=== PATIENT | female | born 2000 | race Caucasian/White ===

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

== ENCOUNTER 2021-03-30 02:01 | Emergency (ER) | payer OTHER ==
[~2021-03-30] VITALS: Ht 182.9 cm; Wt 120.5 kg
[2021-03-30 02:02] VITALS: BP 164/92
[2021-03-30] MEDS ORDERED: LEXA1TAB PO (02:07)
--- NOTE | 2021-03-30 04:57 | REPVR ---
PROCEDURE INFORMATION: Exam: XR Right Foot Exam date and time: 03/30/2021 4:22 AM Age: 21 years old Clinical indication: Pain; Foot; Right; Additional info: Ankle foot pain after a fall TECHNIQUE: Imaging protocol: XR Right foot. Views: 3 or more views. COMPARISON: No relevant prior studies available. FINDINGS: Bones/joints: There is no evidence of acute fracture or dislocation. Joint spaces are preserved. Soft tissues: The soft tissues appear unremarkable. IMPRESSION: No fracture identified. Electronically signed by: Janis Silver On 03/30/2021 04:57:09 AM
--- NOTE | 2021-03-30 04:58 | REPVR ---
PROCEDURE INFORMATION: Exam: XR Right Ankle Exam date and time: 03/30/2021 4:22 AM Age: 21 years old Clinical indication: Pain; Ankle; Right; Additional info: Ankle foot pain after a fall TECHNIQUE: Imaging protocol: XR Right ankle. Views: 3 or more views. COMPARISON: No relevant prior studies available. FINDINGS: Bones/joints: There is no evidence of acute fracture or dislocation. The ankle mortise is symmetric. Soft tissues: The soft tissues appear unremarkable. IMPRESSION: No fracture identified. Electronically signed by: Janis Silver On 03/30/2021 04:57:58 AM
== END 2021-03-30 05:50 | disposition home or self-care (01) ==
LOC: M ED 02:01
DX: S93.401A Sprain of unspecified ligament of right ankle, initial encounter (principal); W01.0XXA Fall on same level from slipping, tripping and stumbling without subsequent striking against object, initial encounter; Y92.481 Parking lot as the place of occurrence of the external cause; Y93.89 Activity, other specified; Y99.0 Civilian activity done for income or pay; Z79.3 Long term (current) use of hormonal contraceptives; Z79.899 Other long term (current) drug therapy

== ENCOUNTER 2021-04-03 13:36 | Emergency (ER) | payer OTHER ==
[~2021-04-03] VITALS: Ht 182.9 cm; Wt 118.2 kg
[~2021-04-03 13:36] MED LIST changes: +LEXA1TAB PO
[2021-04-03 19:37] VITALS: BP 143/70
--- NOTE | 2021-04-04 08:44 | REP ---
INDICATION: s/p fall one week ago, pain over the dorsum and lateral mall. COMPARISON: None. TECHNIQUE: Axial noncontrast images through the right foot with coronal and sagittal reformations. FINDINGS: The osseous structures and joint spaces appear intact and normal. There is no evidence for acute fracture or dislocation. No significant arthritic or obvious congenital abnormalities are identified. The supporting soft tissue structures are grossly normal by CT evaluation. The subcutaneous tissues demonstrate questionable edematous changes to the mid and hindfoot which should be correlated with physical examination and history of injury. No subcutaneous emphysema or foreign body identified. IMPRESSION: Essentially normal examination as above. <Electronically signed by Buck Montanez > 04/04/21 [id number]
== END 2021-04-03 19:41 | disposition home or self-care (01) ==
LOC: M ED 13:36
DX: S93.401A Sprain of unspecified ligament of right ankle, initial encounter (principal); W01.0XXA Fall on same level from slipping, tripping and stumbling without subsequent striking against object, initial encounter; Y92.9 Unspecified place or not applicable; Y93.9 Activity, unspecified; Y99.0 Civilian activity done for income or pay; Z79.899 Other long term (current) drug therapy

== ENCOUNTER → 2021-05-23 | Outpatient (REF) ==
[~2021-05-23] MED LIST changes: -MONT10TA10 PO; +MONT10TA97 PO
== END ==
LOC: M EMP 10:05
PROVIDERS: ATTEND Family Medicine
DX: Z20.822 Contact with and (suspected) exposure to COVID-19 (principal)

== ENCOUNTER → 2021-10-06 | Outpatient (REF) | LOC: M EMP 10:00 | PROVIDERS: ATTEND Family Medicine | DX: Z11.52 Encounter for screening for COVID-19 (principal) ==

== ENCOUNTER → 2021-12-22 | Outpatient (REF) ==
[2021-12-22 12:59] LABS: RSV AMPLIFICATION NEGATIVE (NEGATIVE)
== END ==
LOC: M EMP 09:06
PROVIDERS: ATTEND Family Medicine
DX: Z20.822 Contact with and (suspected) exposure to COVID-19 (principal); Z11.52 Encounter for screening for COVID-19

== ENCOUNTER → 2022-03-06 | Outpatient (CLI) | payer OTHER ==
[2022-03-06 15:53] LABS: HEMATOCRIT 34.5 % (36.0-47.0); HEMOGLOBIN 11.1 g/dl (12.0-15.5); MEAN CORPUSCULAR HEMOGLOBIN 24.6 pg (27.0-33.0); MEAN CORPUSCULAR HGB CONC 32.2 g/dl (32.0-36.5); MEAN CORPUSCULAR VOLUME 76.5 fl (80.0-96.0); PLATELET COUNT, AUTOMATED 244 10^3/uL (150-450); RED BLOOD COUNT 4.51 10^6/uL (4.00-5.40); WHITE BLOOD COUNT 9.6 10^3/uL (4.0-10.0)
[2022-03-06 17:04] LABS: HIV 1&2 SCREEN CENTAUR NEGATIVE (NEGATIVE)
[2022-03-06 17:05] LABS: GC DNA AMPLIFICATION NEGATIVE (NEGATIVE)
[2022-03-06 17:10] LABS: HEPATITIS C VIRUS ABY INDEX 0.3 INDEX (<0.8)
== END ==
LOC: M PLALAB 13:46
PROVIDERS: ATTEND Advanced Practice Midwife
DX: Z36.9 Encounter for antenatal screening, unspecified (principal)

== ENCOUNTER 2022-03-24 11:34 | Emergency (ER) | payer OTHER ==
[~2022-03-24] VITALS: Ht 182.9 cm; Wt 96.2 kg
[2022-03-24 11:35] VITALS: BP 143/68
[2022-03-24] MEDS ORDERED: PRENTAB53 PO (11:44)
[2022-03-24] MEDS ORDERED: ACETAMINOPHEN 500 MG TAB PO ONE (13:15)
[2022-03-24] MEDS ORDERED: ONDANSETRON 4MG 2ML VIAL IV ONE (13:15)
[2022-03-24] MEDS ORDERED: NS 1,000 ML IV ONE (13:15)
[2022-03-24 13:40] LABS: BASO % 0.4 % (0.0-1.0); EOS % 0.4 % (0.0-3.0); HEMATOCRIT 35.2 % (36.0-47.0); HEMOGLOBIN 11.6 g/dl (12.0-15.5); LYMPH # 0.8 10^3/uL (1.5-5.0); LYMPH % 10.2 % (24.0-44.0); MEAN CORPUSCULAR HEMOGLOBIN 25.1 pg (27.0-33.0); MEAN CORPUSCULAR VOLUME 76.2 fl (80.0-96.0); MONO # 0.5 10^3/uL (0.0-0.8); MONO % 6.1 % (2.0-8.0); NEUTROPHILS # 6.6 10^3/uL (1.5-8.5); NEUTROPHILS % 82.4 % (36.0-66.0); PLATELET COUNT, AUTOMATED 215 10^3/uL (150-450); RED BLOOD COUNT 4.62 10^6/uL (4.00-5.40)
[2022-03-24 14:05] LABS: ALBUMIN 3.1 G/DL (3.2-5.2); ALKALINE PHOSPHATASE 86 U/L (46-116); ALT/SGPT 13 U/L (7.0-40); AST/SGOT 15 U/L (<34); BILIRUBIN,DIRECT 0.2 MG/DL (<0.4); BILIRUBIN,TOTAL 0.7 MG/DL (0.3-1.2); BLOOD UREA NITROGEN 8 MG/DL (9-23); CALCIUM LEVEL 8.5 MG/DL (8.5-10.1); CARBON DIOXIDE LEVEL 21 MMOL/L (20-31); CHLORIDE LEVEL 104 MMOL/L (98-107); GLOMERULAR FILTRATION RATE > 60.0 (>60); GLUCOSE, FASTING 85 MG/DL (60-100); POTASSIUM SERUM 3.6 MMOL/L (3.5-5.1); SODIUM LEVEL 137 MMOL/L (136-145); TOTAL PROTEIN 6.4 G/DL (5.7-8.2)
[2022-03-24 14:12] LABS: RSV AMPLIFICATION NEGATIVE (NEGATIVE)
[2022-03-24] MEDS ORDERED: ONDANSETRON 4MG ORAL DISINTEGRATING TAB PO ONE (14:40)
[2022-03-24] MEDS ORDERED: ONDA4TAB6 PO (14:57)
== END 2022-03-24 15:28 | disposition home or self-care (01) ==
LOC: M ED 11:34
DX: O21.9 Vomiting of pregnancy, unspecified (principal); K58.9 Irritable bowel syndrome, unspecified; J45.909 Unspecified asthma, uncomplicated; Z79.810 Long term (current) use of selective estrogen receptor modulators (SERMs); Z79.899 Other long term (current) drug therapy; Z3A.18 18 weeks gestation of pregnancy
CPT/HCPCS: 80048; 80076; 85025; 87631; 96361; 96374; 99284; J2405

== ENCOUNTER → 2022-03-28 | Outpatient (CLI) | payer OTHER ==
[~2022-03-28] MED LIST changes: +ONDA4TAB6 PO; +PRENTAB53 PO
== END ==
LOC: M WHC 08:21
PROVIDERS: ATTEND Advanced Practice Midwife
DX: Z34.01 Encounter for supervision of normal first pregnancy, first trimester (principal); Z3A.19 19 weeks gestation of pregnancy

== ENCOUNTER → 2022-04-26 | Outpatient (CLI) | payer OTHER | LOC: M WHC 08:33 | PROVIDERS: ATTEND Advanced Practice Midwife | DX: Z34.02 Encounter for supervision of normal first pregnancy, second trimester (principal); Z3A.24 24 weeks gestation of pregnancy ==

== ENCOUNTER → 2022-05-18 | Outpatient (CLI) | payer OTHER ==
[2022-05-18 14:15] LABS: HEMATOCRIT 35.1 % (36.0-47.0); HEMOGLOBIN 11.4 g/dl (12.0-15.5); MEAN CORPUSCULAR HEMOGLOBIN 26.1 pg (27.0-33.0); MEAN CORPUSCULAR HGB CONC 32.5 g/dl (32.0-36.5); MEAN CORPUSCULAR VOLUME 80.5 fl (80.0-96.0); PLATELET COUNT, AUTOMATED 242 10^3/uL (150-450); RED BLOOD COUNT 4.36 10^6/uL (4.00-5.40); WHITE BLOOD COUNT 9.7 10^3/uL (4.0-10.0)
== END ==
LOC: M PLALAB 10:04
PROVIDERS: ATTEND Advanced Practice Midwife
DX: Z34.02 Encounter for supervision of normal first pregnancy, second trimester (principal)

== ENCOUNTER → 2022-07-17 | Outpatient (CLI) | payer OTHER ==
[2022-07-17 11:16] LABS: URIC ACID 5.3 MG/DL (3.1-7.8)
[2022-07-17 11:18] LABS: LDH LACTATE DEHYDROGENASE 171 U/L (120-246)
[2022-07-17 11:19] LABS: ALT/SGPT 14 U/L (7.0-40); AST/SGOT 16 U/L (<34); BILIRUBIN,TOTAL 0.2 MG/DL (0.3-1.2); CREATININE FOR GFR 0.55 MG/DL (0.55-1.30); GLOMERULAR FILTRATION RATE > 60.0 (>60)
[2022-07-17 11:24] LABS: HEMATOCRIT 32.7 % (36.0-47.0); HEMOGLOBIN 10.5 g/dl (12.0-15.5); MEAN CORPUSCULAR HEMOGLOBIN 25.1 pg (27.0-33.0); MEAN CORPUSCULAR HGB CONC 32.1 g/dl (32.0-36.5); PLATELET COUNT, AUTOMATED 272 10^3/uL (150-450); RED BLOOD COUNT 4.19 10^6/uL (4.00-5.40); WHITE BLOOD COUNT 13.3 10^3/uL (4.0-10.0)
[2022-07-17 11:33] LABS: TOTAL PROTEIN,RANDOM URINE 11.8 MG/DL (0.0-14.0)
[2022-07-17 11:39] LABS: CREATININE,RANDOM URINE 46.5 MG/DL
== END ==
LOC: M PLALAB 08:33
PROVIDERS: ATTEND Advanced Practice Midwife
DX: O13.9 Gestational [pregnancy-induced] hypertension without significant proteinuria, unspecified trimester (principal)

== ENCOUNTER 2022-07-26 08:06 | Inpatient (IN) | payer OTHER ==
[~2022-07-26] VITALS: Ht 182.9 cm; Wt 109.0 kg
[2022-07-26] VITALS (14 sets, daily range): BP systolic 119–143; BP diastolic 68–96
[2022-07-26] MEDS ORDERED: CETI5SOL3 PO (08:59)
[2022-07-26] MEDS ORDERED: LIDOCAINE 1% MDV 20ML VIAL INFIL PRN (09:00)
[2022-07-26] MEDS ORDERED: OXYTOCIN DRIP 30 UNITS in IV 1 EA IV PRN (09:00)
[2022-07-26 09:17] LABS: HEMATOCRIT 32.9 % (36.0-47.0); HEMOGLOBIN 10.5 g/dl (12.0-15.5); MEAN CORPUSCULAR HEMOGLOBIN 24.4 pg (27.0-33.0); MEAN CORPUSCULAR HGB CONC 31.9 g/dl (32.0-36.5); MEAN CORPUSCULAR VOLUME 76.5 fl (80.0-96.0); PLATELET COUNT, AUTOMATED 225 10^3/uL (150-450); WHITE BLOOD COUNT 11.5 10^3/uL (4.0-10.0)
[2022-07-26] MEDS: miSOPROStol 50MCG 1/2 TABLET SL SCH ×4 (09:31→21:30)
[2022-07-26] MEDS ORDERED: OMEPRAZOLE 20MG CAP PO ONE (21:10)
[2022-07-26] MEDS ORDERED: diphenhydrAMINE 25MG CAP PO ONE (21:10)
[2022-07-27] VITALS (45 sets, daily range): BP systolic 96–150; BP diastolic 59–95
[2022-07-27] MEDS: miSOPROStol 50MCG 1/2 TABLET SL SCH (02:05)
[2022-07-27] MEDS ORDERED: OMEPRAZOLE 20MG CAP PO SCH (09:00)
[2022-07-27] MEDS ORDERED: OXYTOCIN DRIP 30 UNITS in IV 1 EA IV SCH ×2 (09:25→23:40)
[2022-07-27] MEDS: LR 1,000 ML IV SCH ×2 (09:55→17:59)
[2022-07-27] MEDS ORDERED: NALOXONE INJ 0.4MG/1ML VIAL IV PRN (12:45)
[2022-07-27] MEDS ORDERED: LR 500 ML IV PRN (12:45)
[2022-07-27] MEDS ORDERED: diphenhydrAMINE 50MG/ML VIAL IV PRN (12:45)
[2022-07-27] MEDS ORDERED: ePHEDrine SULFATE 25 MG/5 ML(5MG/ML) SYRINGE IVP PRN (12:45)
[2022-07-27] MEDS ORDERED: ONDANSETRON 4MG 2ML VIAL IV PRN ×2 (12:45→23:40)
[2022-07-27] MEDS ORDERED: FENTANYL/ROPIVACAINE/NACL BAG 100 ML EPIDURAL SCH ×2 (12:45→21:00)
[2022-07-27] MEDS ORDERED: EPIDURAL/PCA KEYS XX PRN (12:45)
[2022-07-27] MEDS ORDERED: FENTANYL 2MCG/ML ROPIVACAINE 0.2% IN 0.9% NACL 100ML IVBAG As Ordered ONE ×2 (12:48→12:50)
[2022-07-27] MEDS ORDERED: REFLB XX ONE ×2 (12:49→20:59)
[2022-07-27] MEDS ORDERED: CALCIUM CARBONATE 500 MG CHEW U/D PO PRN (14:50)
[2022-07-27] MEDS ORDERED: RHOGAM 300MCG (1500IU) INJ IM SCH (23:40)
[2022-07-27] MEDS ORDERED: ANUSOL HC CREAM 30GM TOP PRN (23:40)
[2022-07-27] MEDS ORDERED: MOM 30ML SUSPENSION UDC PO PRN (23:40)
[2022-07-28] VITALS (7 sets, daily range): BP systolic 121–144; BP diastolic 74–82
[2022-07-28] MEDS: DIBUCAINE 1% OINTMENT 30GM TOP PRN ×2 (02:04→18:27)
[2022-07-28] MEDS: ACETAMINOPHEN 500 MG TAB PO PRN ×2 (02:44→10:05)
[2022-07-28] MEDS: IBUPROFEN 600MG TAB PO PRN ×2 (06:23→18:28)
[2022-07-28] MEDS: PRENATAL VITAMINS CHEWABLE TABLET PO SCH (10:05)
[2022-07-28] MEDS: DOCUSATE SODIUM 100MG CAPSULE PO SCH ×2 (10:05→20:20)
[2022-07-28] MEDS ORDERED: CETIRIZINE (ZyrTEC) 10 MG TAB PO SCH (21:00)
[2022-07-28] MEDS ORDERED: OMEPRAZOLE 20MG CAP PO SCH (21:00)
[2022-07-29] MEDS: ACETAMINOPHEN 500 MG TAB PO PRN ×2 (05:48→14:15)
[2022-07-29 06:00] VITALS: BP 131/85
[2022-07-29] MEDS: DOCUSATE SODIUM 100MG CAPSULE PO SCH (08:14)
[2022-07-29] MEDS: IBUPROFEN 600MG TAB PO PRN (08:14)
[2022-07-29] MEDS: PRENATAL VITAMINS CHEWABLE TABLET PO SCH (08:14)
[2022-07-29] MEDS ORDERED: MEASLES,MUMPS,RUBELLA VACCINE INJ (MMR-II) SC.IMMUN ONE (09:00)
[2022-07-29] MEDS ORDERED: ACET-683 PO (11:04)
[2022-07-29] MEDS ORDERED: COLA100C5 PO (11:04)
[2022-07-29] MEDS ORDERED: IBUP-1022 PO (11:04)
[2022-07-29] MEDS ORDERED: medroxyPROGESTERone ACET IM SUSP 150 MG/ML VIAL IM ONE (11:30)
== END 2022-07-29 15:30 | disposition home or self-care (01) | DRG 560 ==
LOC: M LDI 08:06 → M OBS 07-28 02:05
PROVIDERS: ADMIT Specialist; ATTEND Specialist
PROC: 3E033VJ Introduction of Other Hormone into Peripheral Vein, Percutaneous Approach (ICD-10-PCS; 2022-07-26)
PROC: 3E0P7VZ Introduction of Hormone into Female Reproductive, Via Natural or Artificial Opening (ICD-10-PCS; 2022-07-26)
PROC: 10E0XZZ Delivery of Products of Conception, External Approach (ICD-10-PCS; principal; 2022-07-27)
PROC: 0KQM0ZZ Repair Perineum Muscle, Open Approach (ICD-10-PCS; 2022-07-27)
DX: O13.4 Gestational [pregnancy-induced] hypertension without significant proteinuria, complicating childbirth (principal); O70.1 Second degree perineal laceration during delivery; Z37.0 Single live birth; Z3A.37 37 weeks gestation of pregnancy

== ENCOUNTER 2022-07-31 00:36 | Emergency (ER) | payer OTHER ==
[~2022-07-31] VITALS: Ht 182.9 cm; Wt 109.1 kg
[~2022-07-31 00:36] MED LIST changes: +ACET-683 PO; +CETI5SOL3 PO; +COLA100C5 PO; +IBUP-1022 PO
[2022-07-31 01:37] LABS: BASO % 0.4 % (0.0-1.0); EOS # 0.3 10^3/uL (0.0-0.5); EOS % 2.7 % (0.0-3.0); HEMATOCRIT 27.8 % (36.0-47.0); LYMPH # 2.6 10^3/uL (1.5-5.0); LYMPH % 27.1 % (24.0-44.0); MEAN CORPUSCULAR HEMOGLOBIN 25.3 pg (27.0-33.0); MEAN CORPUSCULAR HGB CONC 32.4 g/dl (32.0-36.5); MEAN CORPUSCULAR VOLUME 78.1 fl (80.0-96.0); MONO # 0.6 10^3/uL (0.0-0.8); MONO % 5.7 % (2.0-8.0); NEUTROPHILS % 62.9 % (36.0-66.0); PLATELET COUNT, AUTOMATED 225 10^3/uL (150-450); RED BLOOD COUNT 3.56 10^6/uL (4.00-5.40); WHITE BLOOD COUNT 9.6 10^3/uL (4.0-10.0)
[2022-07-31 01:48] LABS: INR 0.91; PROTHROMBIN TIME 12.5 SECONDS (12.5-14.5)
[2022-07-31 01:49] LABS: PARTIAL THROMBOPLASTIN TIME 22.5 SECONDS (24.8-34.2)
[2022-07-31 01:54] LABS: APPEARANCE, URINE CLEAR (CLEAR); BACTERIA, URINE AUTO NEGATIVE (NEGATIVE); BILIRUBIN, URINE AUTO NEGATIVE (NEGATIVE); BLOOD, URINE BLOOD 2+ (NEGATIVE); COLOR, URINE YELLOW (YELLOW); GLUCOSE, URINE (UA) AUTO NEGATIVE (NEGATIVE); KETONE, URINE AUTO NEGATIVE (NEGATIVE); LEUKOCYTE ESTERASE, URINE AUTO 1+ (NEGATIVE); MUCUS, URINE SMALL (NEGATIVE); NITRITE, URINE AUTO NEGATIVE (NEGATIVE); PROTEIN, URINE AUTO NEGATIVE (NEGATIVE); RBC, URINE AUTO 21 /HPF (0-3); SPECIFIC GRAVITY URINE AUTO 1.017 (1.002-1.035); SQUAMOUS EPITHELIAL CELL UR AU 1 /HPF (0-6); UROBILINOGEN, URINE AUTO 0.2 mg/dL (0.0-2.0); WBC, URINE AUTO 8 /HPF (0-3)
[2022-07-31 02:08] LABS: ALBUMIN 2.7 G/DL (3.2-5.2); ALKALINE PHOSPHATASE 106 U/L (46-116); ALT/SGPT 22 U/L (7.0-40); AST/SGOT 20 U/L (<34); BILIRUBIN,TOTAL 0.2 MG/DL (0.3-1.2); BLOOD UREA NITROGEN 12 MG/DL (9-23); CALCIUM LEVEL 8.9 MG/DL (8.5-10.1); CARBON DIOXIDE LEVEL 28 MMOL/L (20-31); CHLORIDE LEVEL 107 MMOL/L (98-107); CREATININE FOR GFR 0.64 MG/DL (0.55-1.30); GLOMERULAR FILTRATION RATE > 60.0 (>60); GLUCOSE, FASTING 85 MG/DL (60-100); POTASSIUM SERUM 4.4 MMOL/L (3.5-5.1); SODIUM LEVEL 141 MMOL/L (136-145); TOTAL PROTEIN 6.1 G/DL (5.7-8.2)
[2022-07-31 02:20] LABS: CREATININE,RANDOM URINE 81.5 MG/DL
[2022-07-31 07:15] VITALS: BP 138/96
== END 2022-07-31 07:30 | disposition home or self-care (01) ==
LOC: M ED 00:36
DX: O12.05 Gestational edema, complicating the puerperium (principal); O90.81 Anemia of the puerperium; R03.0 Elevated blood-pressure reading, without diagnosis of hypertension; J45.909 Unspecified asthma, uncomplicated; K58.9 Irritable bowel syndrome, unspecified; K21.9 Gastro-esophageal reflux disease without esophagitis; Z88.8 Allergy status to other drugs, medicaments and biological substances; Z79.1 Long term (current) use of non-steroidal anti-inflammatories (NSAID); Z79.810 Long term (current) use of selective estrogen receptor modulators (SERMs); Z79.899 Other long term (current) drug therapy

== ENCOUNTER → 2023-01-19 | Outpatient (REF) | payer OTHER | LOC: M LAB REF 18:17 | PROVIDERS: ATTEND Physician Assistant | DX: B34.9 Viral infection, unspecified (principal) ==

== ENCOUNTER → 2023-06-25 | Outpatient (REF) | payer OTHER | LOC: M PLALAB 16:18 | PROVIDERS: ATTEND Advanced Practice Midwife | DX: N93.0 Postcoital and contact bleeding (principal) ==

== ENCOUNTER → 2023-07-01 | Outpatient (REF) | payer OTHER ==
[2023-07-01 14:32] LABS: THYROID STIMULATING HORMONE 1.025 uIU/ML (0.55-4.78); TOTAL 25(OH) VITAMIN D 17.8 NG/ML (20.0-100.0)
[2023-07-01 14:35] LABS: FREE T4 1.05 NG/DL (0.89-1.76)
== END ==
LOC: M SFHCADAM 08:34
PROVIDERS: ATTEND Physician Assistant Medical
DX: F41.1 Generalized anxiety disorder (principal); F32.2 Major depressive disorder, single episode, severe without psychotic features

== ENCOUNTER 2023-10-15 07:37 | Emergency (ER) | payer OTHER, SELFPAY ==
[~2023-10-15] VITALS: Ht 182.9 cm; Wt 112.5 kg
[~2023-10-15 07:37] MED LIST changes: +ONDA-282 PO; -ONDA4TAB6 PO
[2023-10-15] MEDS: ACETAMINOPHEN 325 MG TAB PO ONE (09:35)
[2023-10-15] MEDS: KETOROLAC 30 MG/ML 1ML VIAL IV ONE (09:35)
[2023-10-15] MEDS ORDERED: ONDA-282 PO (09:39)
[2023-10-15] MEDS: ONDANSETRON 4MG ORAL DISINTEGRATING TAB PO ONE (09:58)
[2023-10-15] MEDS: KETOROLAC 30 MG/ML 1ML VIAL IM ONE (09:58)
[2023-10-15 10:17] VITALS: BP 150/79; TEMP 98.1; O2SAT 97
== END 2023-10-15 10:23 | disposition home or self-care (01) ==
LOC: M ED 07:37
DX: S30.0XXA Contusion of lower back and pelvis, initial encounter (principal); S01.01XA Laceration without foreign body of scalp, initial encounter; S13.4XXA Sprain of ligaments of cervical spine, initial encounter; S43.402A Unspecified sprain of left shoulder joint, initial encounter; W10.8XXA Fall (on) (from) other stairs and steps, initial encounter; J45.909 Unspecified asthma, uncomplicated; K58.9 Irritable bowel syndrome, unspecified; I10 Essential (primary) hypertension; F41.9 Anxiety disorder, unspecified; F32.A Depression, unspecified; Z88.8 Allergy status to other drugs, medicaments and biological substances; Z91.048 Other nonmedicinal substance allergy status; Y92.009 Unspecified place in unspecified non-institutional (private) residence as the place of occurrence of the external cause; Y93.89 Activity, other specified; Y99.9 Unspecified external cause status; Z79.83 Long term (current) use of bisphosphonates; Z79.899 Other long term (current) drug therapy
CPT/HCPCS: 70450; 72125; 72190; 73030; 73660; 96372; 99284; J1885

== ENCOUNTER → 2023-12-04 | Outpatient (REF) | LOC: M EMP 10:32 | PROVIDERS: ATTEND Family Medicine | DX: Z11.52 Encounter for screening for COVID-19 (principal) ==

== ENCOUNTER → 2024-01-27 | Outpatient (REF) | LOC: M EMP 12:57 | PROVIDERS: ATTEND Family Medicine | DX: Z11.52 Encounter for screening for COVID-19 (principal) ==

== ENCOUNTER → 2024-04-11 | Outpatient (REF) | payer OTHER | LOC: M LAB REF 13:14 | PROVIDERS: ATTEND Physician Assistant | DX: J02.9 Acute pharyngitis, unspecified (principal) ==

== ENCOUNTER → 2024-04-27 | Outpatient (CLI) | payer OTHER ==
[2024-04-27 18:26] LABS: THYROID STIMULATING HORMONE 1.332 uIU/ML (0.55-4.78); TOTAL 25(OH) VITAMIN D 75.2 NG/ML (20.0-100.0)
[2024-04-27 18:27] LABS: FREE T4 1.14 NG/DL (0.89-1.76)
== END ==
LOC: M PLALAB 16:12
PROVIDERS: ATTEND Physician Assistant Medical
DX: F32.2 Major depressive disorder, single episode, severe without psychotic features (principal)

== ENCOUNTER → 2024-05-21 | Outpatient (CLI) | payer OTHER | LOC: M WUC 09:55 | PROVIDERS: ATTEND Physician Assistant | DX: S90.32XA Contusion of left foot, initial encounter (principal); W01.10XA Fall on same level from slipping, tripping and stumbling with subsequent striking against unspecified object, initial encounter; Y92.009 Unspecified place in unspecified non-institutional (private) residence as the place of occurrence of the external cause ==

== ENCOUNTER → 2024-06-16 | Outpatient (CLI) | payer OTHER | LOC: M SOG 07:54 | PROVIDERS: ATTEND Physician Assistant | DX: Z53.21 Procedure and treatment not carried out due to patient leaving prior to being seen by health care provider (principal) ==

== ENCOUNTER → 2024-06-30 | Outpatient (REF) | payer OTHER | LOC: M SFHCWAGY 13:09 | PROVIDERS: ATTEND Advanced Practice Midwife | DX: Z12.4 Encounter for screening for malignant neoplasm of cervix (principal) ==

== ENCOUNTER → 2024-10-20 | Outpatient (CLI) | payer OTHER ==
[2024-10-20 16:11] LABS: PLATELET COUNT, AUTOMATED 373 10^3/uL (150-450)
[2024-10-20 16:42] LABS: ALT/SGPT 19 U/L (7.0-40); AST/SGOT 17 U/L (<34); CALCIUM LEVEL 9.5 MG/DL (8.5-10.1); CARBON DIOXIDE LEVEL 28 MMOL/L (20-31); CHLORIDE LEVEL 102 MMOL/L (98-107); CHOLESTEROL LEVEL 120 MG/DL (<200); CHOLESTEROL RISK RATIO 3.26 (<5); CREATININE FOR GFR 0.66 MG/DL (0.55-1.30); GLOMERULAR FILTRATION RATE > 90.0 (>60); LDL CHOLESTEROL 65.9 MG/DL (<100); NON-HDL-C 83.3 MG/DL; POTASSIUM SERUM 4.2 MMOL/L (3.5-5.1); SODIUM LEVEL 141 MMOL/L (136-145); TRIGLYCERIDES LEVEL 87 MG/DL (<150)
[2024-10-20 17:28] LABS: ESTIMATED AVERAGE GLUCOSE 111.0 MG/DL (60-110)
== END ==
LOC: M LAB 15:26
DX: F31.81 Bipolar II disorder (principal)

== ENCOUNTER → 2024-11-03 | Outpatient (CLI) | payer OTHER ==
[2024-11-03 15:16] LABS: PLATELET COUNT, AUTOMATED 322 10^3/uL (150-450)
[2024-11-03 15:40] LABS: IRON (FE) 13.0 UG/DL (50-170); PERCENT SATURATION 4.2 % (13.2-45.0)
[2024-11-03 15:43] LABS: VITAMIN B12 LEVEL 664.0 PG/ML (211-911)
== END ==
LOC: M LAB 14:24
PROVIDERS: ATTEND Physician Assistant Medical
DX: D64.9 Anemia, unspecified (principal); N92.0 Excessive and frequent menstruation with regular cycle

== ENCOUNTER → 2024-11-04 | Outpatient (REF) | payer OTHER | LOC: M SFHCADAM 12:52 | PROVIDERS: ATTEND Physician Assistant Medical | DX: D64.9 Anemia, unspecified (principal); N92.0 Excessive and frequent menstruation with regular cycle ==

== ENCOUNTER 2024-11-25 11:56 | Outpatient (CLI) | payer OTHER ==
[~2024-11-25] VITALS: Ht 182.9 cm; Wt 119.0 kg
[~2024-11-25 11:56] MED LIST changes: +ALBUTEROL SULFATE 2.5 MG/0.5 ML INH CONCENTRATE NEB SOLN INH PRN; +EPINEPHrine INJ 1 MG/ML 1ML AMP IM PRN; -IBUP-1022 PO; +IBUP600T42 PO; +diphenhydrAMINE 50 MG/ML VIAL IV PRN
[2024-11-25 12:00] VITALS: BP 125/73; O2SAT 100
[2024-11-25] MEDS: IRON SUCROSE 300 MG in NS 250 ML IV ONE (13:19)
[2024-11-25 15:38] VITALS: BP 130/76; O2SAT 97
== END 2024-11-25 15:38 ==
LOC: M INFU 11:56
PROVIDERS: ATTEND Physician Assistant Medical
DX: D64.9 Anemia, unspecified (principal); Z88.8 Allergy status to other drugs, medicaments and biological substances
CPT/HCPCS: 96365; 96366; J1100; J1756

== ENCOUNTER → 2024-12-18 | Outpatient (CLI) | payer OTHER ==
[~2024-12-18] MED LIST changes: -ALBUTEROL SULFATE 2.5 MG/0.5 ML INH CONCENTRATE NEB SOLN INH PRN; -EPINEPHrine INJ 1 MG/ML 1ML AMP IM PRN; -diphenhydrAMINE 50 MG/ML VIAL IV PRN
== END ==
LOC: M WHC 08:36
PROVIDERS: ATTEND Physician Assistant Medical
DX: E66.01 Morbid (severe) obesity due to excess calories (principal)

== ENCOUNTER → 2025-02-12 | Outpatient (REF) | payer OTHER ==
[2025-02-12 17:30] LABS: APPEARANCE, URINE CLOUDY (CLEAR); BACTERIA, URINE AUTO 2+ (NEGATIVE); BILIRUBIN, URINE AUTO NEGATIVE (NEGATIVE); BLOOD, URINE BLOOD 1+ (NEGATIVE); GLUCOSE, URINE (UA) AUTO NEGATIVE (NEGATIVE); KETONE, URINE AUTO NEGATIVE (NEGATIVE); LEUKOCYTE ESTERASE, URINE AUTO 3+ (NEGATIVE); MUCUS, URINE SMALL (NEGATIVE); NITRITE, URINE AUTO POSITIVE (NEGATIVE); PROTEIN, URINE AUTO NEGATIVE (NEGATIVE); RBC, URINE AUTO 8 /HPF (0-3); SPECIFIC GRAVITY URINE AUTO 1.016 (1.002-1.035); SQUAMOUS EPITHELIAL CELL UR AU 5 /HPF (0-6); UROBILINOGEN, URINE AUTO 0.2 mg/dL (0.0-2.0); WBC, URINE AUTO TNTC /HPF (0-3)
== END ==
LOC: M LAB REF 16:58
PROVIDERS: ATTEND Physician Assistant Medical
DX: N39.0 Urinary tract infection, site not specified (principal)

== ENCOUNTER → 2025-02-24 | Outpatient (CLI) | payer OTHER ==
[2025-02-24 13:54] LABS: PLATELET COUNT, AUTOMATED 330 10^3/uL (150-450)
[2025-02-24 14:25] LABS: IRON (FE) 27.0 UG/DL (50-170); PERCENT SATURATION 10.1 % (13.2-45.0)
== END ==
LOC: M LAB 11:33
PROVIDERS: ATTEND Physician Assistant Medical
DX: D50.0 Iron deficiency anemia secondary to blood loss (chronic) (principal); E66.01 Morbid (severe) obesity due to excess calories